=== PATIENT | male | born 2000 | race African-American/Black ===

== ENCOUNTER 2024-12-23 15:26 | Emergency (ER) | payer SELFPAY ==
[~2024-12-23] VITALS: Ht 172.7 cm; Wt 100.0 kg
[2024-12-23 15:31] VITALS: O2SAT 97
[2024-12-23 17:25] LABS: HEMATOCRIT. 43.0 % (42.0-52.0); HEMOGLOBIN. 14.3 g/dL (14.0-18.0); MEAN PLATELET VOLUME 7.9 fl (7.4-10.4); PLATELET 236 x1000/uL (130-400); RED BLOOD CELL COUNT 5.13 mill/uL (4.7-6.1); RED CELL DISTRIBUTION WIDTH 13.2 % (11.6-14.6)
[2024-12-23 17:48] LABS: LYMPHOCYTES % MANUAL 14.0 % (20.0-50.0); MONOCYTES % MANUAL 7.0 % (2.0-8.0); NEUTROPHILS % MANUAL 79.0 % (45.0-75.0); PLATELET ESTIMATE NORMAL
[2024-12-23] MEDS: SODIUM CHLORIDE 0.9% 1,000 ML IV ONE ×2 (17:50)
[2024-12-23 17:52] LABS: CREATININE 1.1 mg/dL (0.6-1.3); UREA NITROGEN BLOOD 9 mg/dL (9-23)
[2024-12-23 17:54] LABS: ASPARTATE AMINOTRANSFERASE 17 IU/L (<34); BILIRUBIN DIRECT 0.1 mg/dL (<=3.0); BILIRUBIN TOTAL 0.4 mg/dL (0.1-1.0); PROTEIN TOTAL 7.9 g/dL (6.0-8.3)
[2024-12-23 18:33] LABS: *AMPHETAMINES SCREEN URINE NEGATIVE (NEGATIVE); *BENZODIAZEPINES SCREEN URINE NEGATIVE (NEGATIVE)
[2024-12-23 18:34] LABS: BG DEOXYHEMOGLOBIN 54.4 % (0.0-5.0)
[2024-12-23 18:34] LABS: *BARBITURATES SCREEN URINE NEGATIVE (NEGATIVE); *COCAINE SCREEN URINE NEGATIVE (NEGATIVE); CANNABINOID URINE SCREEN NEGATIVE (NEGATIVE); ECSTASY MDMA SCREEN URINE NEGATIVE (NEGATIVE); METHADONE URINE SCREEN NEGATIVE (NEGATIVE); OPIATES URINE SCREEN NEGATIVE (NEGATIVE); PHENCYCLIDINE URINE SCREEN NEGATIVE (NEGATIVE)
[2024-12-23 19:51] VITALS: BP 136/95; PULSE 92; RESP 23; TEMP 37; O2SAT 98
== END 2024-12-23 20:05 | disposition home or self-care (01) ==
LOC: ER 15:26
DX: R55 Syncope and collapse (principal); R73.9 Hyperglycemia, unspecified; E86.0 Dehydration; F41.9 Anxiety disorder, unspecified; Z79.899 Other long term (current) drug therapy
CPT/HCPCS: 80076; 80305; 80048; 82010; 80320; 82140; 82550; 83690; 85025; 36415; 82375; 82803; 93005; 96360; 99284; J7030; G0480